=== PATIENT | female | born 1945 | race Hispanic/Latino ===

== ENCOUNTER 2017-08-19 08:54 | Observation (INO) | payer MEDICARE ==
[2017-08-16 12:09] VITALS: BP 126/52
[2017-08-16 12:30] LABS: BASOPHILS % (AUTO) 0.4 % (0.0-5.0); EOSINOPHILS % (AUTO) 5.7 % (0.0-8.0); HEMATOCRIT 35.7 % (36-48); LYMPHOCYTES % (AUTO) 30.4 % (21.0-51.0); MEAN CORPUSCULAR HEMOGLOBIN 31.6 pg (27.0-33.0); MEAN CORPUSCULAR HGB CONC 33.4 g/dL (32.0-36.0); MEAN CORPUSCULAR VOLUME 94.5 fL (79-99); MONOCYTES % (AUTO) 8.6 % (3.0-13.0); NEUTROPHILS % (AUTO) 54.9 % (40.0-77.0); PLATELET COUNT (AUTO) 137 K/uL (130-400); RED BLOOD CELL COUNT(AUTO) 3.77 MIL/uL (4.00-5.50); RED CELL DISTRIBUTION WIDTH 12.6 % (11.0-15.5); WHITE BLOOD COUNT (AUTO) 8.7 K/uL (4.8-10.8)
[2017-08-16 12:39] LABS: CREATININE 1.4 mg/dL (0.5-1.5); POTASSIUM 4.2 mmol/L (3.5-5.1)
[2017-08-16 13:17] LABS: INR 0.99 (0.85-1.15); PARTIAL THROMBOPLASTIN TIME 25.3 SEC (26.3-35.5); PROTHROMBIN TIME 10.4 SEC (9.6-11.6)
[2017-08-19] VITALS (10 sets, daily range): BP systolic 97–132; BP diastolic 49–78
[~2017-08-19] VITALS: Ht 154.9 cm; Wt 58.7 kg
[~2017-08-19 08:54] MED LIST: AMLO10TA2 PO; ASPI81TA40 PO; CEPH500C2 PO; CLOP75TA14 PO; DEXL60CA3 PO; FURO40TA5 PO; ISOS30TA6 PO; METO-391 PO; NEPHRO VITE PO; SIMV20TA6 PO
[2017-08-19 09:28] LABS: APPEARANCE,URINE Clear (CLEAR); BILIRUBIN,URINE Negative (NEGATIVE); COLOR,URINE Yellow (YELLOW); GLUCOSE, URINE (UA) Negative (NEGATIVE); KETONES,URINE Negative (NEGATIVE); LEUKOCYTE ESTERASE ,URINE Negative (NEGATIVE); NITRATE,URINE Negative (NEGATIVE); OCCULT BLOOD,URINE Negative (NEGATIVE); PH,URINE 5.5 (5.0-8.0); PROTEIN,URINE Negative (NEGATIVE); UROBILINOGEN,URINE 0.2 mg/dL (0.2-1.0)
[2017-08-19] MEDS: SODIUM CHLORIDE 0.9% 500ML 500 ML IV SCH ×2 (10:46→22:09)
[2017-08-19] MEDS ORDERED: HEPARIN SODIUM 1000UNIT/ML 10ML VIAL ONE (13:53)
[2017-08-19] MEDS ORDERED: IOPAMIDOL-370 100 ML VIAL IV ONE ×2 (13:53→14:38)
[2017-08-19] MEDS ORDERED: LIDOCAINE HCL 2% 20ML ONE (13:53)
[2017-08-19] MEDS ORDERED: NITROGLYCERIN 5 MG/ML 10 ML VIAL IV ONE (13:53)
[2017-08-19] MEDS ORDERED: ISOVUE-370 50ML VIAL IV ONE (13:53)
[2017-08-19] MEDS ORDERED: SODIUM BICARB 50MEQ 50ML VIAL ONE (13:54)
[2017-08-19] MEDS ORDERED: MIDAZOLAM HCL 1 MG/ML 2ML VIAL ONE ×2 (14:20→14:46)
[2017-08-19] MEDS ORDERED: ATROPINE SULFATE 0.1 MG/ML 10 ML SYG IVP ONE (15:13)
[2017-08-19] MEDS ORDERED: SODIUM CHLORIDE 0.9% 1000ML 1,000 ML IV SCH (15:45)
[2017-08-19] MEDS ORDERED: ONDANSETRON HCL 4 MG/2 ML VIAL IVP PRN (15:45)
[2017-08-19] MEDS ORDERED: TEMAZEPAM 30 MG CAP PO PRN (15:45)
[2017-08-19] MEDS ORDERED: NITROGLYCERIN 50 MG/D5% WATER 1 BOT IV PRN (15:45)
[2017-08-19] MEDS: INSULIN HUMULIN R 100 UNIT/ML 3ML SQ SCH ×2 (16:30→21:00)
[2017-08-19] MEDS: KETOROLAC TROMETHAMINE 15MG/ML IV PRN (18:13)
[2017-08-19] MEDS ORDERED: ATORVASTATIN CALCIUM 10 MG TABLET PO SCH (21:00)
[2017-08-19] MEDS: CEPHALEXIN 500 MG CAPSULE PO SCH (23:33)
[2017-08-20 04:00] VITALS: BP 151/68
[2017-08-20 04:45] LABS: HEMATOCRIT 31.1 % (36-48); MEAN CORPUSCULAR HEMOGLOBIN 32.6 pg (27.0-33.0); MEAN CORPUSCULAR HGB CONC 34.6 g/dL (32.0-36.0); MEAN CORPUSCULAR VOLUME 94.1 fL (79-99); PLATELET COUNT (AUTO) 145 K/uL (130-400); RED CELL DISTRIBUTION WIDTH 12.5 % (11.0-15.5); WHITE BLOOD COUNT (AUTO) 6.1 K/uL (4.8-10.8)
[2017-08-20 05:01] LABS: CREATININE 1.5 mg/dL (0.5-1.5); POTASSIUM 4.4 mmol/L (3.5-5.1)
[2017-08-20] MEDS: INSULIN HUMULIN R 100 UNIT/ML 3ML SQ SCH (06:20)
[2017-08-20 07:00] VITALS: BP 133/72
[2017-08-20] MEDS: CEPHALEXIN 500 MG CAPSULE PO SCH (07:57)
[2017-08-20] MEDS: KETOROLAC TROMETHAMINE 15MG/ML IV PRN (07:58)
[2017-08-20] MEDS ORDERED: ASPIRIN 81 MG EC TAB PO SCH (09:00)
[2017-08-20] MEDS ORDERED: PANTOPRAZOLE SODIUM 40 MG TABLET.DR PO SCH (09:00)
[2017-08-20] MEDS ORDERED: AMLODIPINE BESYLATE 5 MG TAB PO SCH (09:00)
[2017-08-20] MEDS ORDERED: FOLIC ACID/VITAMIN B COMP W-C 1 MG CAPSULE PO SCH (09:00)
[2017-08-20] MEDS ORDERED: Metoprolol Succinate 50 MG PO SCH (09:00)
[2017-08-20] MEDS ORDERED: FUROSEMIDE 40 MG TABLET PO SCH (09:00)
[2017-08-20] MEDS ORDERED: CLOPIDOGREL BISULFATE 75 MG TAB PO SCH (09:00)
[2017-08-20] MEDS ORDERED: ISOSORBIDE MONO 30MG TAB SR PO SCH (09:00)
== END 2017-08-20 10:35 | disposition home or self-care (01) ==
LOC: DAH 08:54 → DAHIP 08:55 → 2DH 16:18
PROVIDERS: ADMIT Internal Medicine Cardiovascular Disease; ATTEND Internal Medicine Cardiovascular Disease
DX: I25.119 Atherosclerotic heart disease of native coronary artery with unspecified angina pectoris (principal); I10 Essential (primary) hypertension; E11.9 Type 2 diabetes mellitus without complications; E78.5 Hyperlipidemia, unspecified; Z95.5 Presence of coronary angioplasty implant and graft
CPT/HCPCS: 36415 ×2; 71045; 80048 ×2; 80061; 81003; 82948 ×4; 85025; 85027; 85347; 85610; 85730; 93005 ×2; 93459; 96374; 96375; 96376; A4606; C1725; C1760; C1769 ×3; C1874; C1887 ×4; C1894 ×2; C9600; G0378 ×26; J1644 ×2; J1885 ×2; J2250 ×2; J2405 ×2; J3490 ×3; J7040 ×3; Q9967 ×3; 99152; 99153; J0461

== ENCOUNTER 2017-08-22 10:52 | Emergency (ER) | payer MEDICARE | END 2017-08-22 11:24 | disposition home or self-care (01) | LOC: EDH 10:52 | DX: L76.32 Postprocedural hematoma of skin and subcutaneous tissue following other procedure (principal); E11.9 Type 2 diabetes mellitus without complications; I10 Essential (primary) hypertension; E78.5 Hyperlipidemia, unspecified; I25.2 Old myocardial infarction; Z88.1 Allergy status to other antibiotic agents; Z88.8 Allergy status to other drugs, medicaments and biological substances; Z98.62 Peripheral vascular angioplasty status | CPT/HCPCS: 99281 ==

== ENCOUNTER → 2017-08-23 | Outpatient (CLI) | payer MEDICARE | END | disposition home or self-care (01) | LOC: RAH 15:13 | PROVIDERS: ATTEND Internal Medicine Cardiovascular Disease | DX: M79.81 Nontraumatic hematoma of soft tissue (principal) | CPT/HCPCS: 76882 ==

== ENCOUNTER 2017-12-29 09:04 | Emergency (ER) | payer MEDICARE ==
[2017-12-29] MEDS ORDERED: ACETAMINOPHEN 325 MG TAB ONE (09:24)
[2017-12-29 09:27] LABS: BASOPHILS % (AUTO) 0.3 % (0.0-5.0); EOSINOPHILS % (AUTO) 4.3 % (0.0-8.0); HEMATOCRIT 37.2 % (36-48); MEAN CORPUSCULAR HEMOGLOBIN 31.2 pg (27.0-33.0); MEAN CORPUSCULAR HGB CONC 34.6 g/dL (32.0-36.0); MEAN CORPUSCULAR VOLUME 90.3 fL (79-99); MONOCYTES % (AUTO) 7.8 % (3.0-13.0); NEUTROPHILS % (AUTO) 65.6 % (40.0-77.0); PLATELET COUNT (AUTO) 143 K/uL (130-400); RED BLOOD CELL COUNT(AUTO) 4.12 MIL/uL (4.00-5.50); RED CELL DISTRIBUTION WIDTH 14.2 % (11.0-15.5); WHITE BLOOD COUNT (AUTO) 8.3 K/uL (4.8-10.8)
[2017-12-29] MEDS ORDERED: IPRATROPIUM/ALBUTEROL SULFATE 3 ML SOLUTION IH ONE (09:30)
[2017-12-29 09:34] LABS: CREATININE 1.1 mg/dL (0.5-1.5); POTASSIUM 4.4 mmol/L (3.5-5.1)
[2017-12-29 09:41] LABS: ALBUMIN 3.8 g/dL (3.5-5.0); BILIRUBIN,TOTAL 0.8 mg/dL (0.2-1.0); TOTAL PROTEIN, SERUM 7.6 g/dL (6.0-8.3)
[2017-12-29 10:00] LABS: APPEARANCE,URINE Clear (CLEAR); BILIRUBIN,URINE Negative (NEGATIVE); COLOR,URINE Yellow (YELLOW); GLUCOSE, URINE (UA) Negative (NEGATIVE); KETONES,URINE Negative (NEGATIVE); LEUKOCYTE ESTERASE ,URINE Moderate (NEGATIVE); NITRATE,URINE Negative (NEGATIVE); OCCULT BLOOD,URINE Negative (NEGATIVE); PROTEIN,URINE Negative (NEGATIVE)
[2017-12-29 10:09] LABS: INR 0.96 (0.85-1.15); PROTHROMBIN TIME 10.1 SEC (9.6-11.6)
[2017-12-29 10:11] LABS: RAPID GROUP A STREP NEGATIVE (NEGATIVE)
[2017-12-29 10:32] LABS: BACTERIA,URINE Few /HPF (None Seen); RBC,URINE None Seen /HPF (0-1); SQUAMOUS EPITHELIAL CELL,UR Few /HPF (0-2); WBC,URINE 0-1 /HPF (0-1)
== END 2017-12-29 11:59 | disposition home or self-care (01) ==
LOC: EDH 09:04
DX: J20.9 Acute bronchitis, unspecified (principal); E11.9 Type 2 diabetes mellitus without complications; E78.5 Hyperlipidemia, unspecified; I10 Essential (primary) hypertension; I25.2 Old myocardial infarction; Z88.1 Allergy status to other antibiotic agents; Z79.899 Other long term (current) drug therapy
CPT/HCPCS: 36415; 71045; 80053; 81001; 82550; 84484; 85025; 85610; 85730; 87040; 87804; 87880; 93005; 94640

== ENCOUNTER → 2018-01-08 | Outpatient (CLI) | payer MEDICARE | END | disposition home or self-care (01) | LOC: SHCH 14:50 | PROVIDERS: ATTEND Internal Medicine Cardiovascular Disease | DX: I25.119 Atherosclerotic heart disease of native coronary artery with unspecified angina pectoris (principal); I10 Essential (primary) hypertension; E11.9 Type 2 diabetes mellitus without complications; E78.5 Hyperlipidemia, unspecified; Z95.1 Presence of aortocoronary bypass graft; I65.23 Occlusion and stenosis of bilateral carotid arteries | CPT/HCPCS: 93880 ==

== ENCOUNTER 2018-04-13 22:26 | Inpatient (IN) | payer MEDICARE ==
[~2018-04-13] VITALS: Ht 160 cm; Wt 63.3 kg
[~2018-04-13 22:26] MED LIST changes: -AMLO10TA2 PO; +AMLO10TA6 PO
[2018-04-13] MEDS ORDERED: ONDANSETRON HCL 4 MG/2 ML VIAL ONE (23:00)
[2018-04-13 23:27] LABS: BASOPHILS % (AUTO) 0.9 % (0.0-5.0); LYMPHOCYTES % (AUTO) 14.4 % (21.0-51.0); MEAN CORPUSCULAR HEMOGLOBIN 32.1 pg (27.0-33.0); MEAN CORPUSCULAR HGB CONC 34.9 g/dL (32.0-36.0); MONOCYTES % (AUTO) 5.5 % (3.0-13.0); NEUTROPHILS % (AUTO) 76.2 % (40.0-77.0); PLATELET COUNT (AUTO) 174 K/uL (130-400); RED BLOOD CELL COUNT(AUTO) 4.24 MIL/uL (4.00-5.50); RED CELL DISTRIBUTION WIDTH 13.6 % (11.0-15.5)
[2018-04-13 23:40] LABS: CREATININE 1.3 mg/dL (0.5-1.5); POTASSIUM 3.4 mmol/L (3.5-5.1)
[2018-04-13 23:42] LABS: INR 0.97 (0.85-1.15); PARTIAL THROMBOPLASTIN TIME 23.7 SEC (26.3-35.5); PROTHROMBIN TIME 10.2 SEC (9.6-11.6)
[2018-04-13 23:53] LABS: ALBUMIN 3.9 g/dL (3.5-5.0); BILIRUBIN,TOTAL 0.6 mg/dL (0.2-1.0); TOTAL PROTEIN, SERUM 7.6 g/dL (6.0-8.3)
[2018-04-14 02:20] LABS: APPEARANCE,URINE Cloudy (CLEAR); BILIRUBIN,URINE Negative (NEGATIVE); COLOR,URINE Yellow (YELLOW); GLUCOSE, URINE (UA) Negative (NEGATIVE); KETONES,URINE Negative (NEGATIVE); LEUKOCYTE ESTERASE ,URINE Large (NEGATIVE); NITRATE,URINE Negative (NEGATIVE); OCCULT BLOOD,URINE Negative (NEGATIVE); PH,URINE 5.5 (5.0-8.0); PROTEIN,URINE Trace (NEGATIVE)
[2018-04-14 02:27] LABS: BACTERIA,URINE None Seen /HPF (None Seen); RBC,URINE None Seen /HPF (0-1); SQUAMOUS EPITHELIAL CELL,UR Rare /HPF (0-2)
[2018-04-14] MEDS ORDERED: NITROGLYCERIN 1GM/1 INCH PACKET TD ONE (04:18)
[2018-04-14 05:35] LABS: BASOPHILS % (AUTO) 0.1 % (0.0-5.0); EOSINOPHILS % (AUTO) 2.2 % (0.0-8.0); HEMATOCRIT 32.4 % (36-48); LYMPHOCYTES % (AUTO) 20.6 % (21.0-51.0); MEAN CORPUSCULAR HEMOGLOBIN 31.9 pg (27.0-33.0); MONOCYTES % (AUTO) 6.7 % (3.0-13.0); NEUTROPHILS % (AUTO) 70.4 % (40.0-77.0); PLATELET COUNT (AUTO) 137 K/uL (130-400); RED BLOOD CELL COUNT(AUTO) 3.56 MIL/uL (4.00-5.50); RED CELL DISTRIBUTION WIDTH 13.5 % (11.0-15.5); WHITE BLOOD COUNT (AUTO) 7.6 K/uL (4.8-10.8)
[2018-04-14 05:39] LABS: CREATININE 1.2 mg/dL (0.5-1.5); POTASSIUM 3.2 mmol/L (3.5-5.1)
[2018-04-14 05:44] LABS: ALBUMIN 3.2 g/dL (3.5-5.0); BILIRUBIN,TOTAL 0.4 mg/dL (0.2-1.0); TOTAL PROTEIN, SERUM 6.5 g/dL (6.0-8.3)
[2018-04-14 06:10] VITALS: BP 139/66
[2018-04-14 08:00] VITALS: BP 131/74
[2018-04-14] MEDS: FUROSEMIDE 40 MG TABLET PO SCH (09:42)
[2018-04-14] MEDS: ASPIRIN 81MG TAB.CHEW PO SCH (09:42)
[2018-04-14] MEDS: AMLODIPINE BESYLATE 5 MG TAB PO SCH (09:42)
[2018-04-14] MEDS: CLOPIDOGREL BISULFATE 75 MG TAB PO SCH (09:42)
[2018-04-14] MEDS: PANTOPRAZOLE SODIUM 40 MG TABLET.DR PO SCH (09:42)
[2018-04-14] MEDS: ISOSORBIDE MONO 30MG TAB SR PO SCH (09:42)
[2018-04-14 12:00] VITALS: BP 120/57
[2018-04-14] MEDS ORDERED: POTASSIUM CHLORIDE 10% ELIXIR 20 MEQ/15 ML UDCUP PO PRN (15:30)
[2018-04-14] MEDS ORDERED: POTASSIUM CHLORIDE 20MEQ/100ML 100 ML IV PRN (15:30)
[2018-04-14] MEDS ORDERED: LIDOCAINE HCL-MPF 1% 2ML VIAL IVP PRN (15:30)
[2018-04-14 16:00] VITALS: BP 103/71
[2018-04-14] MEDS: POTASSIUM CHLORIDE 20 MEQ ERTAB PO PRN ×3 (17:15→21:00)
[2018-04-14 20:00] VITALS: BP 153/73
[2018-04-14] MEDS ORDERED: SIMVASTATIN 20 MG TABLET PO SCH (21:00)
[2018-04-14] MEDS ORDERED: METOPROLOL TARTRATE 25 MG TAB PO SCH (21:00)
[2018-04-14 23:10] VITALS: BP 109/59
[2018-04-15] MEDS ORDERED: ACETAMINOPHEN 325 MG TAB PO PRN (03:30)
[2018-04-15] MEDS ORDERED: LACTULOSE 20 GM/30 ML UDCUP PO PRN (03:30)
[2018-04-15 03:42] VITALS: BP 108/57
[2018-04-15 05:07] LABS: BASOPHILS % (AUTO) 0.3 % (0.0-5.0); EOSINOPHILS % (AUTO) 8.1 % (0.0-8.0); HEMATOCRIT 33.4 % (36-48); LYMPHOCYTES % (AUTO) 42.6 % (21.0-51.0); MEAN CORPUSCULAR HEMOGLOBIN 31.4 pg (27.0-33.0); MEAN CORPUSCULAR HGB CONC 34.2 g/dL (32.0-36.0); MEAN CORPUSCULAR VOLUME 91.9 fL (79-99); MONOCYTES % (AUTO) 9.1 % (3.0-13.0); NEUTROPHILS % (AUTO) 39.9 % (40.0-77.0); PLATELET COUNT (AUTO) 112 K/uL (130-400); RED BLOOD CELL COUNT(AUTO) 3.64 MIL/uL (4.00-5.50); RED CELL DISTRIBUTION WIDTH 13.9 % (11.0-15.5); WHITE BLOOD COUNT (AUTO) 5.5 K/uL (4.8-10.8)
[2018-04-15 05:27] LABS: ALBUMIN 3.2 g/dL (3.5-5.0); BILIRUBIN,TOTAL 0.5 mg/dL (0.2-1.0); CREATININE 1.2 mg/dL (0.5-1.5); POTASSIUM 3.8 mmol/L (3.5-5.1); TOTAL PROTEIN, SERUM 6.3 g/dL (6.0-8.3)
[2018-04-15 08:15] VITALS: BP 113/57
[2018-04-15] MEDS ORDERED: METOPROLOL TARTRATE 50 MG TAB PO SCH (09:00)
[2018-04-15] MEDS ORDERED: METO50TA18 PO (09:15)
[2018-04-15] MEDS: CLOPIDOGREL BISULFATE 75 MG TAB PO SCH (09:32)
[2018-04-15] MEDS: ISOSORBIDE MONO 30MG TAB SR PO SCH (09:32)
[2018-04-15] MEDS: PANTOPRAZOLE SODIUM 40 MG TABLET.DR PO SCH (09:32)
[2018-04-15] MEDS: ASPIRIN 81MG TAB.CHEW PO SCH (09:32)
[2018-04-15] MEDS: FUROSEMIDE 40 MG TABLET PO SCH (09:32)
[2018-04-15] MEDS: AMLODIPINE BESYLATE 5 MG TAB PO SCH (09:32)
== END 2018-04-15 13:05 | disposition home or self-care (01) | DRG 206 ==
LOC: EDH 22:26 → EDHIP 04-14 02:50 → 3DH 04-14 05:58
PROVIDERS: ADMIT Hospitalist; ATTEND Hospitalist
DX: M94.0 Chondrocostal junction syndrome [Tietze] (principal); K21.9 Gastro-esophageal reflux disease without esophagitis; R00.2 Palpitations; E11.51 Type 2 diabetes mellitus with diabetic peripheral angiopathy without gangrene; F41.9 Anxiety disorder, unspecified; I10 Essential (primary) hypertension; E78.5 Hyperlipidemia, unspecified; I25.119 Atherosclerotic heart disease of native coronary artery with unspecified angina pectoris; Z95.1 Presence of aortocoronary bypass graft; Z79.84 Long term (current) use of oral hypoglycemic drugs; Z82.49 Family history of ischemic heart disease and other diseases of the circulatory system; Z83.3 Family history of diabetes mellitus; Z82.0 Family history of epilepsy and other diseases of the nervous system; Z82.5 Family history of asthma and other chronic lower respiratory diseases; Z82.3 Family history of stroke; Z83.49 Family history of other endocrine, nutritional and metabolic diseases; Z90.710 Acquired absence of both cervix and uterus; Z90.49 Acquired absence of other specified parts of digestive tract; Z88.1 Allergy status to other antibiotic agents; Z88.2 Allergy status to sulfonamides; Z88.7 Allergy status to serum and vaccine; Z88.8 Allergy status to other drugs, medicaments and biological substances; Z79.899 Other long term (current) drug therapy; Z28.21 Immunization not carried out because of patient refusal; Z79.82 Long term (current) use of aspirin; Z90.722 Acquired absence of ovaries, bilateral
CPT/HCPCS: 36415; 71045; 80053; 81001; 82550; 82948; 83605; 83690; 83874; 84484; 85025; 85610; 85730; 93005; J2405

== ENCOUNTER 2019-01-28 19:43 | Inpatient (IN) | payer MEDICARE | END 2019-01-31 15:30 | disposition home or self-care (01) | LOC: EDH 19:43 → EDHIP 22:08 → 4CH 22:44 ==

== ENCOUNTER → 2019-03-12 | Outpatient (CLI) | payer MEDICARE ==
--- NOTE | 2019-03-06 13:51 | NUR ---
PT WAS A NO SHOW FOR THIS DATE OF SERVICE
[~2019-03-12] VITALS: Ht 152.4 cm; Wt 60.8 kg
[~2019-03-12] MED LIST changes: -AMLO10TA6 PO; +AMLO5TAB9 PO; -CEPH500C2 PO; +DOCU-282 PO; +MECL-111 PO; -METO-391 PO; +METO25 PO; +NITR0.4T50 SL; +REGADENOSON 0.4 MG/5 ML PF SYG IVP SCH; -SIMV20TA6 PO; +SUCR1TAB2 PO
== END | disposition home or self-care (01) ==
LOC: SHCH 09:06
PROVIDERS: ATTEND Internal Medicine Cardiovascular Disease
DX: I25.10 Atherosclerotic heart disease of native coronary artery without angina pectoris (principal)
CPT/HCPCS: 78452; 93017; 96374; A9500 ×2; J2785

== ENCOUNTER 2019-05-22 07:49 | Inpatient (IN) | payer MEDICARE ==
[~2019-05-22] VITALS: Ht 154.9 cm; Wt 58.5 kg
[~2019-05-22 07:49] MED LIST changes: -REGADENOSON 0.4 MG/5 ML PF SYG IVP SCH
[2019-05-22 08:48] LABS: BASOPHILS % (AUTO) 0.9 % (0.0-5.0); EOSINOPHILS % (AUTO) 1.5 % (0.0-8.0); HEMATOCRIT 34.5 % (36-48); LYMPHOCYTES % (AUTO) 21.9 % (21.0-51.0); MEAN CORPUSCULAR HEMOGLOBIN 31.4 pg (27.0-33.0); MEAN CORPUSCULAR HGB CONC 34.6 g/dL (32.0-36.0); MEAN CORPUSCULAR VOLUME 90.9 fL (79-99); MONOCYTES % (AUTO) 9.4 % (3.0-13.0); NEUTROPHILS % (AUTO) 66.3 % (40.0-77.0); PLATELET COUNT (AUTO) 133 K/uL (130-400); RED CELL DISTRIBUTION WIDTH 14.2 % (11.0-15.5); WHITE BLOOD COUNT (AUTO) 8.8 K/uL (4.8-10.8)
[2019-05-22 08:53] LABS: CARBON DIOXIDE 24 mmol/L (21-32); CHLORIDE 105 mmol/L (101-111); CREATININE 1.1 mg/dL (0.5-1.5); GLOMERULAR FILTR. RATE CALC 51 mL/min (>60); GLUCOSE,RANDOM 105 mg/dL (70-105); POTASSIUM 3.7 mmol/L (3.5-5.1); SODIUM SERUM 139 mmol/L (136-145); UREA NITROGEN, BLOOD 12 mg/dL (7-18)
[2019-05-22] MEDS ORDERED: ZOSYN 3.375GM+NS 50ML 50 ML IV ONE (08:53)
[2019-05-22 08:59] LABS: ALANINE AMINOTRANSFERASE 21 U/L (12-78); ALBUMIN 3.4 g/dL (3.5-5.0); ASPARTATE AMINOTRANSFERASE 23 U/L (10-37); INR 1.01 (0.85-1.15); PROTHROMBIN TIME 10.6 SEC (9.6-11.6)
[2019-05-22 09:17] LABS: BILIRUBIN,TOTAL 1.4 mg/dL (0.2-1.0); CREATINE KINASE, TOTAL 47 U/L (21-232); MYOGLOBIN 82 ng/mL (10-92); TOTAL PROTEIN, SERUM 7.5 g/dL (6.0-8.3); TROPONIN I < 0.04 ng/mL (0.00-0.06)
[2019-05-22 09:21] LABS: BILIRUBIN,URINE Negative (NEGATIVE); COLOR,URINE Dark Yellow (YELLOW); GLUCOSE, URINE (UA) Negative (NEGATIVE); KETONES,URINE Negative (NEGATIVE); LEUKOCYTE ESTERASE ,URINE Moderate (NEGATIVE); NITRATE,URINE Negative (NEGATIVE); OCCULT BLOOD,URINE Negative (NEGATIVE); PROTEIN,URINE Negative (NEGATIVE)
[2019-05-22 09:22] LABS: APPEARANCE,URINE SLIGHTLY CLOUDY (CLEAR)
[2019-05-22] MEDS ORDERED: VANCOMYCIN 1GM+NS 250ML 250 ML IV ONE (09:22)
[2019-05-22 09:38] LABS: BACTERIA,URINE Few /HPF (None Seen); RBC,URINE 0-1 /HPF (0-1)
[2019-05-22] MEDS ORDERED: RENAL DOSE IV SCH ×2 (10:45→11:30)
[2019-05-22] MEDS ORDERED: PHARMACY COMMUNICATION MISC SCH (10:45)
[2019-05-22] MEDS ORDERED: ONDANSETRON HCL 4 MG/2 ML VIAL IVP PRN (10:45)
[2019-05-22] MEDS ORDERED: ACETAMINOPHEN 325 MG TAB PO PRN (10:45)
[2019-05-22] MEDS ORDERED: VANCOMYCIN PROTOCOL PER PHARMACY IV SCH (12:30)
[2019-05-22 13:48] VITALS: BP 150/74
[2019-05-22] MEDS: VANCOMYCIN 500MG+NS 100ML 100 ML IV SCH (14:42)
[2019-05-22] MEDS: MORPHINE SULFATE 2 MG/ML 1ML SYG IV PRN ×2 (14:45→21:12)
[2019-05-22 16:00] VITALS: BP 132/63
[2019-05-22] MEDS: ZOSYN 3.375GM+NS 50ML 50 ML IV SCH (18:21)
[2019-05-22 20:12] VITALS: BP 155/75
[2019-05-22] MEDS: FAMOTIDINE 20MG TAB 20 MG TAB PO SCH (20:17)
[2019-05-22] MEDS ORDERED: FOLI1TAB85 PO (23:53)
[2019-05-22] MEDS ORDERED: METO-408 PO (23:53)
[2019-05-23 00:09] VITALS: BP 161/79
[2019-05-23] MEDS: ZOSYN 3.375GM+NS 50ML 50 ML IV SCH ×3 (00:24→17:27)
[2019-05-23] MEDS: VANCOMYCIN 500MG+NS 100ML 100 ML IV SCH ×2 (00:24→13:29)
[2019-05-23] MEDS: MORPHINE SULFATE 2 MG/ML 1ML SYG IV PRN ×2 (02:09→13:29)
[2019-05-23 04:12] VITALS: BP 143/75
[2019-05-23 06:20] LABS: BASOPHILS % (AUTO) 0.5 % (0.0-5.0); EOSINOPHILS % (AUTO) 2.3 % (0.0-8.0); HEMATOCRIT 32.9 % (36-48); LYMPHOCYTES % (AUTO) 21.9 % (21.0-51.0); MEAN CORPUSCULAR HEMOGLOBIN 31.6 pg (27.0-33.0); MEAN CORPUSCULAR HGB CONC 34.4 g/dL (32.0-36.0); MEAN CORPUSCULAR VOLUME 91.8 fL (79-99); MONOCYTES % (AUTO) 10.2 % (3.0-13.0); NEUTROPHILS % (AUTO) 65.1 % (40.0-77.0); NUCLEATED RED BLOOD CELLS 0.1 % (0.0-0.19); PLATELET COUNT (AUTO) 137 K/uL (130-400); RED BLOOD CELL COUNT(AUTO) 3.59 MIL/uL (4.00-5.50); RED CELL DISTRIBUTION WIDTH 13.8 % (11.0-15.5); WHITE BLOOD COUNT (AUTO) 8.6 K/uL (4.8-10.8)
[2019-05-23 06:41] LABS: CREATININE 1.2 mg/dL (0.5-1.5); POTASSIUM 3.7 mmol/L (3.5-5.1)
[2019-05-23 08:00] VITALS: BP 152/69
[2019-05-23] MEDS: ENOXAPARIN SODIUM 30 MG/0.3 ML SQ SCH (09:07)
[2019-05-23] MEDS: FAMOTIDINE 20MG TAB 20 MG TAB PO SCH ×2 (09:07→21:41)
[2019-05-23 11:00] VITALS: BP_SYST 127; BP_SYST 154; BP_DIAS 64; BP_DIAS 86
[2019-05-23] MEDS ORDERED: LORAZEPAM 2 MG/ML 1 ML VIAL IVP PRN (16:45)
[2019-05-23] MEDS: KETOROLAC TROMETHAMINE 15MG/ML IV PRN (17:27)
--- NOTE | 2019-05-23 19:02 | NUR ---
D/C PLAN CM spoke to pt and wood Benitez regarding d/c planning. Pt lives with son. Daughter Eli is patient's provider. Daughter assists in care as needed. Pt and daughter agreeable to short term snf/rehab as possible d/c option. Undecided as to which facility. Daughter will be touring facilities and will make decision tomorrow. CM to f/u. Addendum: 05/23/19 at 1904 by SOM MARTINEZ CM Amended: Links added.
[2019-05-23 19:25] VITALS: BP 125/73
[2019-05-23 23:15] VITALS: BP 147/73
[2019-05-24] MEDS: VANCOMYCIN 500MG+NS 100ML 100 ML IV SCH ×2 (00:27→16:06)
[2019-05-24] MEDS: ZOSYN 3.375GM+NS 50ML 50 ML IV SCH ×3 (00:27→16:14)
[2019-05-24 05:25] VITALS: BP 155/83
[2019-05-24 05:51] LABS: BASOPHILS % (AUTO) 0.3 % (0.0-5.0); EOSINOPHILS % (AUTO) 2.9 % (0.0-8.0); HEMATOCRIT 28.9 % (36-48); LYMPHOCYTES % (AUTO) 30.2 % (21.0-51.0); MEAN CORPUSCULAR HEMOGLOBIN 31.5 pg (27.0-33.0); MEAN CORPUSCULAR HGB CONC 34.9 g/dL (32.0-36.0); MEAN CORPUSCULAR VOLUME 90.2 fL (79-99); MONOCYTES % (AUTO) 8.8 % (3.0-13.0); NEUTROPHILS % (AUTO) 57.8 % (40.0-77.0); PLATELET COUNT (AUTO) 141 K/uL (130-400); RED BLOOD CELL COUNT(AUTO) 3.21 MIL/uL (4.00-5.50); RED CELL DISTRIBUTION WIDTH 13.8 % (11.0-15.5); WHITE BLOOD COUNT (AUTO) 7.3 K/uL (4.8-10.8)
[2019-05-24 05:59] LABS: CREATININE 1.2 mg/dL (0.5-1.5); POTASSIUM 3.4 mmol/L (3.5-5.1)
[2019-05-24] MEDS ORDERED: LIDOCAINE HCL-MPF 1% 2ML VIAL IV PRN (06:15)
[2019-05-24] MEDS ORDERED: POTASSIUM CHLORIDE 10% ELIXIR 20 MEQ/15 ML UDCUP PO PRN (06:15)
[2019-05-24] MEDS ORDERED: POTASSIUM CHLORIDE 10MEQ/100ML 100 ML IV PRN (06:15)
[2019-05-24] MEDS ORDERED: POTASSIUM CHLORIDE 20 MEQ ERTAB PO PRN (06:15)
[2019-05-24] MEDS ORDERED: POTASSIUM CHLORIDE 10 MEQ/TAB.SA PO ONE (06:34)
[2019-05-24 08:00] VITALS: BP 161/94
[2019-05-24] MEDS: ENOXAPARIN SODIUM 30 MG/0.3 ML SQ SCH (09:06)
[2019-05-24] MEDS: FAMOTIDINE 20MG TAB 20 MG TAB PO SCH (09:06)
[2019-05-24] MEDS: KETOROLAC TROMETHAMINE 15MG/ML IV PRN ×2 (10:31→17:41)
[2019-05-24 11:00] VITALS: BP 138/91
[2019-05-24] MEDS ORDERED: LACTULOSE 20 GM/30 ML UDCUP PO PRN (12:45)
[2019-05-24 16:00] VITALS: BP 126/73
[2019-05-24] MEDS ORDERED: CLIN300C9 PO (18:13)
[2019-05-24 19:45] VITALS: BP 113/62
== END 2019-05-24 20:05 | disposition home or self-care (01) | DRG 603 ==
LOC: EDH 07:49 → EDHIP 10:42 → OBSVTOIN 10:42 → 4DH 12:32
PROVIDERS: ADMIT Hospitalist; ATTEND Hospitalist
DX: L03.114 Cellulitis of left upper limb (principal); E11.9 Type 2 diabetes mellitus without complications; E78.5 Hyperlipidemia, unspecified; I10 Essential (primary) hypertension; I25.2 Old myocardial infarction; Z82.0 Family history of epilepsy and other diseases of the nervous system; Z82.3 Family history of stroke; Z82.49 Family history of ischemic heart disease and other diseases of the circulatory system; Z83.3 Family history of diabetes mellitus; Z95.1 Presence of aortocoronary bypass graft; Z82.5 Family history of asthma and other chronic lower respiratory diseases; Z88.1 Allergy status to other antibiotic agents; Z88.8 Allergy status to other drugs, medicaments and biological substances
CPT/HCPCS: 36415; 71045; 73070; 80048; 80053; 80202; 81001; 82550; 82948; 83605; 83874; 84145; 84484; 85025; 85610; 85651; 85730; 86140; 87040; 87077; 87088; 87186; 93005; 97039; G0378; J1650; J1885; J2060; J2543; J3370

== ENCOUNTER 2019-05-29 11:05 | Inpatient (IN) | payer MEDICARE ==
[~2019-05-29] VITALS: Ht 157.5 cm; Wt 59.3 kg
[~2019-05-29 11:05] MED LIST changes: +CLIN300C9 PO; +FOLI1TAB85 PO; -MECL-111 PO; +METO-408 PO; -METO25 PO; -NEPHRO VITE PO; -NITR0.4T50 SL
[2019-05-29 11:33] LABS: BASOPHILS % (AUTO) 0.3 % (0.0-5.0); EOSINOPHILS % (AUTO) 3.4 % (0.0-8.0); HEMATOCRIT 30.1 % (36-48); LYMPHOCYTES % (AUTO) 15.4 % (21.0-51.0); MEAN CORPUSCULAR HEMOGLOBIN 30.2 pg (27.0-33.0); MEAN CORPUSCULAR HGB CONC 33.4 g/dL (32.0-36.0); MEAN CORPUSCULAR VOLUME 90.4 fL (79-99); MONOCYTES % (AUTO) 5.2 % (3.0-13.0); NEUTROPHILS % (AUTO) 75.7 % (40.0-77.0); PLATELET COUNT (AUTO) 275 K/uL (130-400); RED BLOOD CELL COUNT(AUTO) 3.33 MIL/uL (4.00-5.50); RED CELL DISTRIBUTION WIDTH 13.4 % (11.0-15.5); WHITE BLOOD COUNT (AUTO) 12.8 K/uL (4.8-10.8)
[2019-05-29 11:45] LABS: CREATININE 1.3 mg/dL (0.5-1.5); POTASSIUM 3.5 mmol/L (3.5-5.1)
[2019-05-29 11:49] LABS: INR 1.03 (0.85-1.15); PARTIAL THROMBOPLASTIN TIME 30.6 SEC (26.3-35.5); PROTHROMBIN TIME 10.8 SEC (9.6-11.6)
[2019-05-29 11:53] LABS: ALBUMIN 2.6 g/dL (3.5-5.0); BILIRUBIN,TOTAL 0.6 mg/dL (0.2-1.0); TOTAL PROTEIN, SERUM 7.2 g/dL (6.0-8.3)
[2019-05-29] MEDS ORDERED: CLINDAMYCIN 600 MG/D5% WATER 50 ML IV ONE ×2 (12:01→19:41)
[2019-05-29] MEDS ORDERED: SODIUM CHLORIDE 0.9% 1000ML 1,000 ML IV ONE (12:02)
[2019-05-29 12:04] LABS: B-TYPE NATRIURETIC PEPTIDE 396 pg/mL (0-100)
[2019-05-29] MEDS ORDERED: ONDANSETRON HCL 4 MG/2 ML VIAL IV PRN (15:00)
[2019-05-29] MEDS ORDERED: ACETAMINOPHEN 325 MG TAB PO PRN ×2 (15:00)
[2019-05-29] MEDS: NITROGLYCERIN 1GM/1 INCH PACKET TD SCH ×2 (15:00→23:00)
[2019-05-29] MEDS ORDERED: ACETAMINOPHEN-CODEINE 300/30MG TAB PO PRN ×2 (15:00)
[2019-05-29] MEDS: CLINDAMYCIN 600 MG/D5% WATER 50 ML IV SCH ×2 (15:00→23:00)
[2019-05-29] MEDS ORDERED: LACTULOSE 20 GM/30 ML UDCUP PO PRN (15:00)
[2019-05-29] MEDS ORDERED: HYDRALAZINE HCL 20 MG/ML VIAL IV PRN (15:00)
[2019-05-29 17:14] LABS: HEMOGLOBIN A1C 5.3 % (4.0-6.0)
[2019-05-29 17:21] LABS: CREATINE KINASE, TOTAL 173 U/L (21-232); MYOGLOBIN 120 ng/mL (10-92); PHOSPHORUS 3.3 mg/dL (2.5-4.9); TROPONIN I < 0.04 ng/mL (0.00-0.06)
[2019-05-29] MEDS ORDERED: ACETAMINOPHEN-CODEINE 300/30MG TAB ONE ×2 (18:11→23:21)
[2019-05-29] MEDS ORDERED: FAMOTIDINE/PF 20 MG/2 ML VIAL IV ONE (19:41)
[2019-05-29] MEDS: FAMOTIDINE/PF 20 MG/2 ML VIAL IV SCH (21:00)
[2019-05-29] MEDS: METOPROLOL TARTRATE 25 MG TAB PO SCH (21:00)
[2019-05-29 22:48] LABS: CREATINE KINASE, TOTAL 155 U/L (21-232); MYOGLOBIN 96 ng/mL (10-92); TROPONIN I < 0.04 ng/mL (0.00-0.06)
[2019-05-30] MEDS ORDERED: LORAZEPAM 2 MG/ML 1 ML VIAL ONE (01:32)
[2019-05-30] MEDS ORDERED: CLINDAMYCIN 600 MG/D5% WATER 50 ML IV ONE ×2 (04:20→12:21)
[2019-05-30] MEDS: NITROGLYCERIN 1GM/1 INCH PACKET TD SCH ×3 (07:00→22:58)
[2019-05-30] MEDS: CLINDAMYCIN 600 MG/D5% WATER 50 ML IV SCH ×3 (07:00→22:58)
[2019-05-30 07:18] LABS: CREATINE KINASE, TOTAL 139 U/L (21-232); MYOGLOBIN 72 ng/mL (10-92); TROPONIN I < 0.04 ng/mL (0.00-0.06)
[2019-05-30] MEDS: ASPIRIN 325 MG TABLET PO SCH (09:00)
[2019-05-30] MEDS: ENOXAPARIN SODIUM 40 MG/0.4 ML SYRINGE SQ SCH (09:00)
[2019-05-30] MEDS: FAMOTIDINE/PF 20 MG/2 ML VIAL IV SCH ×2 (09:00→20:33)
[2019-05-30] MEDS ORDERED: FAMOTIDINE/PF 20 MG/2 ML VIAL IV ONE (10:09)
[2019-05-30] MEDS ORDERED: ENOXAPARIN SODIUM 40 MG/0.4 ML SYRINGE SQ ONE (10:09)
[2019-05-30] MEDS ORDERED: ACETAMINOPHEN-CODEINE 300/30MG TAB ONE (11:31)
[2019-05-30] MEDS ORDERED: METOPROLOL TARTRATE 25 MG TAB ONE (11:31)
[2019-05-30 16:48] VITALS: BP 155/74
[2019-05-30] MEDS: METOPROLOL TARTRATE 25 MG TAB PO SCH ×2 (17:30→20:33)
[2019-05-30] MEDS: DiphenhydrAMINE HCL 50 MG/ML VIAL IM PRN (18:10)
[2019-05-30] MEDS: HALOPERIDOL LACTATE 5 MG/ML VIAL IV PRN (18:10)
[2019-05-30 19:00] VITALS: BP 147/76
[2019-05-30 23:00] VITALS: BP 139/94
[2019-05-31] MEDS: DiphenhydrAMINE HCL 50 MG/ML VIAL IM PRN (01:39)
[2019-05-31] MEDS: HALOPERIDOL LACTATE 5 MG/ML VIAL IV PRN (01:40)
[2019-05-31 03:00] VITALS: BP 150/70
[2019-05-31] MEDS: CLINDAMYCIN 600 MG/D5% WATER 50 ML IV SCH ×3 (05:56→23:53)
[2019-05-31] MEDS: NITROGLYCERIN 1GM/1 INCH PACKET TD SCH ×3 (05:56→16:43)
[2019-05-31 07:20] VITALS: BP 148/72
--- NOTE | 2019-05-31 07:35 | NUR ---
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 PT DENIES PAIN ,SOB, NAUSEA. PT IS ABLE TO AMBULATE TO BEDSIDE COMMODE WITH ASSIST, GAIT SLOW AND UNSTEADY WITH RECURRENT BUCKLING OF KNEES. PT DENIES DIZZINESS BUT DOES C/O HEADACHE. PT IS ABLE TO TOLERATE FOOD, FLUIDS AND MEDICATION WITH NO THROAT CLEARING OR COUGH. CALL LIGHT WITHIN REACH, FAMILY AT BEDSIDE.
[2019-05-31 08:40] LABS: BASOPHILS % (AUTO) 0.4 % (0.0-5.0); EOSINOPHILS % (AUTO) 2.8 % (0.0-8.0); HEMATOCRIT 30.7 % (36-48); LYMPHOCYTES % (AUTO) 22.2 % (21.0-51.0); MEAN CORPUSCULAR HEMOGLOBIN 30.3 pg (27.0-33.0); MEAN CORPUSCULAR HGB CONC 33.9 g/dL (32.0-36.0); MEAN CORPUSCULAR VOLUME 89.5 fL (79-99); MONOCYTES % (AUTO) 8.2 % (3.0-13.0); NEUTROPHILS % (AUTO) 66.4 % (40.0-77.0); PLATELET COUNT (AUTO) 336 K/uL (130-400); RED BLOOD CELL COUNT(AUTO) 3.43 MIL/uL (4.00-5.50); RED CELL DISTRIBUTION WIDTH 13.6 % (11.0-15.5); WHITE BLOOD COUNT (AUTO) 7.9 K/uL (4.8-10.8)
[2019-05-31 08:50] LABS: CREATININE 1.1 mg/dL (0.5-1.5); MAGNESIUM 1.7 mg/dL (1.80-2.40); PHOSPHORUS 3.7 mg/dL (2.5-4.9)
[2019-05-31] MEDS ORDERED: POTASSIUM CHLORIDE 20MEQ/100ML 100 ML IV PRN (09:00)
[2019-05-31] MEDS ORDERED: LIDOCAINE HCL-MPF 1% 2ML VIAL IV PRN (09:00)
[2019-05-31] MEDS ORDERED: MAGNESIUM 2GM PREMIX 50ML 50 ML IV PRN (09:00)
[2019-05-31] MEDS ORDERED: POTASSIUM CHLORIDE 20 MEQ ERTAB PO PRN (09:00)
[2019-05-31] MEDS ORDERED: POTASSIUM CHLORIDE 10% ELIXIR 20 MEQ/15 ML UDCUP PO PRN (09:00)
[2019-05-31] MEDS: FAMOTIDINE/PF 20 MG/2 ML VIAL IV SCH ×2 (09:10→21:46)
[2019-05-31] MEDS: ASPIRIN 325 MG TABLET PO SCH (09:11)
[2019-05-31] MEDS: ENOXAPARIN SODIUM 40 MG/0.4 ML SYRINGE SQ SCH (09:11)
[2019-05-31] MEDS: METOPROLOL TARTRATE 25 MG TAB PO SCH ×2 (09:12→21:47)
[2019-05-31 11:20] VITALS: BP 148/71
--- NOTE | 2019-05-31 11:23 | NUR ---
cm note met with patient and grandtr, pt states resides athome with expouse and granddaughter, and provider is daughter for 30/wk. pt uses walker and cane for ambulation. no other services. discussed snf level of care with pt, and pt agreeable, call made to daughter celina and states prefers [facility]. pt in agreement. choice letter and RAE obtained. Addendum: 05/31/19 at 1125 by CLINT ESPINO CM Amended: Links added.
[2019-05-31 16:00] VITALS: BP 139/95
[2019-05-31 20:04] VITALS: BP 158/76
[2019-05-31] MEDS: INSULIN HUMULIN R 100 UNIT/ML 3ML SQ SCH (21:00)
[2019-05-31] MEDS: ATORVASTATIN CALCIUM 20 MG TABLET PO SCH (21:47)
[2019-05-31] MEDS ORDERED: SODIUM CHLORIDE 0.9% 250 ML IV ONE (23:38)
[2019-05-31 23:58] VITALS: BP 117/78
[2019-06-01] MEDS: NITROGLYCERIN 1GM/1 INCH PACKET TD SCH ×3 (00:58→17:45)
[2019-06-01 04:01] VITALS: BP 165/85
[2019-06-01 04:31] LABS: HEMATOCRIT 28.8 % (36-48); MEAN CORPUSCULAR HGB CONC 34.7 g/dL (32.0-36.0); MEAN CORPUSCULAR VOLUME 89.3 fL (79-99); PLATELET COUNT (AUTO) 322 K/uL (130-400); RED BLOOD CELL COUNT(AUTO) 3.23 MIL/uL (4.00-5.50); RED CELL DISTRIBUTION WIDTH 13.4 % (11.0-15.5)
[2019-06-01 04:49] LABS: ALBUMIN 2.3 g/dL (3.5-5.0); CREATININE 0.8 mg/dL (0.5-1.5); MAGNESIUM 1.9 mg/dL (1.80-2.40); PHOSPHORUS 3.4 mg/dL (2.5-4.9)
[2019-06-01 04:51] LABS: B-TYPE NATRIURETIC PEPTIDE 543 pg/mL (0-100)
[2019-06-01] MEDS: INSULIN HUMULIN R 100 UNIT/ML 3ML SQ SCH ×4 (05:39→21:00)
[2019-06-01] MEDS: CLINDAMYCIN 600 MG/D5% WATER 50 ML IV SCH ×2 (05:39→15:57)
[2019-06-01 07:19] VITALS: BP 166/79
[2019-06-01] MEDS: FAMOTIDINE/PF 20 MG/2 ML VIAL IV SCH ×2 (08:15→21:10)
[2019-06-01] MEDS: ASPIRIN 325 MG TABLET PO SCH (08:15)
[2019-06-01] MEDS: ENOXAPARIN SODIUM 40 MG/0.4 ML SYRINGE SQ SCH (08:16)
[2019-06-01] MEDS: LISINOPRIL 10 MG TABLET PO SCH (08:16)
[2019-06-01] MEDS: METOPROLOL TARTRATE 25 MG TAB PO SCH ×2 (08:16→21:10)
[2019-06-01 11:00] VITALS: BP 136/76
--- NOTE | 2019-06-01 15:24 | NUR ---
DC PLAN INFO SENT TO [facility]. REP NOTIFIED. LILLI DONE. PENDING APPROVAL. Addendum: 06/01/19 at 1525 by JERRY DÍAZ RN CM Amended: Links added.
[2019-06-01 15:32] VITALS: BP 154/74
[2019-06-01 19:41] VITALS: BP 158/78
--- NOTE | 2019-06-01 20:00 | NUR ---
PM NOTE PATIENT RESTING IN BED, NO S/S OF DISTRESS. PATIENT ALERT & ORIENTED X4, ON ROOM AIR. DAUGHTER AT BEDSIDE. PATIENT DENIES PAIN OR SHORTNESS OF BREATH AT THIS TIME. ON TELEMETRY PATIENT IS SINUS RHYTHM AT 77. CALL LIGHT WITHIN REACH. INSTRUCTED TO CALL FOR ASSISTANCE. VERBALIZED UNDERSTANDING. Addendum: 06/02/19 at 0059 by LAMBERTO STEEN RN PATIENT ALERT & ORIENTED X2.
[2019-06-01] MEDS ORDERED: TEMAZEPAM 15 MG CAPSULE PO SCH (21:00)
[2019-06-01] MEDS: ATORVASTATIN CALCIUM 20 MG TABLET PO SCH (21:10)
[2019-06-01 23:00] VITALS: BP 148/72
[2019-06-02] MEDS: CLINDAMYCIN 600 MG/D5% WATER 50 ML IV SCH ×3 (01:10→14:55)
[2019-06-02] MEDS: NITROGLYCERIN 1GM/1 INCH PACKET TD SCH ×3 (01:14→16:28)
[2019-06-02 04:00] VITALS: BP 158/80
[2019-06-02] MEDS: INSULIN HUMULIN R 100 UNIT/ML 3ML SQ SCH ×3 (07:00→16:28)
[2019-06-02 07:11] VITALS: BP 154/76
[2019-06-02] MEDS ORDERED: MEMANTINE HCL 5 MG TABLET PO SCH (09:00)
[2019-06-02] MEDS ORDERED: CITALOPRAM 20 MG TABLET PO SCH (09:00)
[2019-06-02] MEDS ORDERED: ALLO100T PO (10:27)
[2019-06-02] MEDS: ENOXAPARIN SODIUM 40 MG/0.4 ML SYRINGE SQ SCH (10:29)
[2019-06-02] MEDS: FAMOTIDINE/PF 20 MG/2 ML VIAL IV SCH (10:30)
[2019-06-02] MEDS: ASPIRIN 325 MG TABLET PO SCH (10:30)
[2019-06-02] MEDS: LISINOPRIL 10 MG TABLET PO SCH (10:30)
[2019-06-02] MEDS: METOPROLOL TARTRATE 25 MG TAB PO SCH (10:30)
[2019-06-02 11:40] VITALS: BP 104/63
--- NOTE | 2019-06-02 13:41 | NUR ---
SHILO PLAN PATIENT ACCEPTED TO [facility] 0900 THIS MORNING. LET NURSE AND KNOW. WILL GO VIA FACILITY [facility]. Addendum: 06/02/19 at 1342 by JERRY DÍAZ RN CM Amended: Links added.
[2019-06-02 15:13] VITALS: BP 132/68
[2019-06-02] MEDS ORDERED: ASPI81TA40 PO (16:22)
[2019-06-02] MEDS ORDERED: ACET-2247 PO (16:22)
[2019-06-02] MEDS ORDERED: MEMA5TAB PO (16:22)
[2019-06-02] MEDS ORDERED: TEMA15CA PO (16:22)
[2019-06-02] MEDS ORDERED: LISI10TA7 PO (16:22)
[2019-06-02] MEDS ORDERED: ATOR20TA65 PO (16:22)
[2019-06-02] MEDS ORDERED: METO25 PO (16:22)
[2019-06-02] MEDS ORDERED: CITA-106 PO (16:22)
== END 2019-06-02 19:05 | DRG 603 ==
LOC: EDH 11:05 → EDHIP 14:55 → 2DH 05-30 16:16
PROVIDERS: ADMIT Internal Medicine; ATTEND Internal Medicine
DX: L03.114 Cellulitis of left upper limb (principal); R07.89 Other chest pain; M70.32 Other bursitis of elbow, left elbow; F03.90 Unspecified dementia, unspecified severity, without behavioral disturbance, psychotic disturbance, mood disturbance, and anxiety; F41.1 Generalized anxiety disorder; E11.9 Type 2 diabetes mellitus without complications; E78.2 Mixed hyperlipidemia; I10 Essential (primary) hypertension; I25.10 Atherosclerotic heart disease of native coronary artery without angina pectoris; Z88.8 Allergy status to other drugs, medicaments and biological substances; I25.2 Old myocardial infarction; Z95.1 Presence of aortocoronary bypass graft; Z83.3 Family history of diabetes mellitus; Z82.5 Family history of asthma and other chronic lower respiratory diseases; Z82.3 Family history of stroke; Z82.0 Family history of epilepsy and other diseases of the nervous system; Z82.49 Family history of ischemic heart disease and other diseases of the circulatory system
CPT/HCPCS: 36415; 71045; 80048; 80053; 82040; 82550; 82948; 83036; 83605; 83735; 83874; 83880; 84100; 84145; 84484; 85025; 85027; 85610; 85730; 87040; 93005; 97039; G0378; J1200; J1630; J1650; J2060; J3490; J7030

== ENCOUNTER → 2019-09-14 | Outpatient (CLI) | payer MEDICARE ==
[~2019-09-14] MED LIST changes: +ACET-2247 PO; +AMLO5TAB5 PO; -AMLO5TAB9 PO; +ATOR20TA65 PO; +CITA-106 PO; +DONE5TAB33 PO; +MELO-106 PO; +MEMA5TAB PO; +MIRT15TA6 PO; +RANI150T7 PO; +TEMA15CA PO
== END | disposition home or self-care (01) ==
LOC: SHCH 08:23
PROVIDERS: ATTEND Internal Medicine Cardiovascular Disease
DX: R60.9 Edema, unspecified (principal)
CPT/HCPCS: 93970

== ENCOUNTER 2019-12-15 05:43 | Day surgery (SDC) | payer MEDICARE ==
[2019-12-15] VITALS (10 sets, daily range): BP systolic 104–154; BP diastolic 52–73
[~2019-12-15] VITALS: Ht 157.5 cm; Wt 67.2 kg
[~2019-12-15 05:43] MED LIST changes: -ACET-2247 PO; +ALLO100T PO; -CITA-106 PO; +CITA10TA7 PO; -CLIN300C9 PO; -DOCU-282 PO; -ISOS30TA6 PO; -MELO-106 PO; +MEMA10TA55 PO; -MEMA5TAB PO; -RANI150T7 PO; -SUCR1TAB2 PO; -TEMA15CA PO
--- NOTE | 2019-12-15 06:00 | NUR ---
PREOP PT ARRIVED VIA W/C WITH DAUGHTER AT SIDE. PT IN NO DISTRESS AT THIS TIME. PT HERE FOR [facility]. PT ORIENTED TO ROOM, CALL LIGHT WITHIN REACH AND CONNECTED TO BINGO CLERK
--- NOTE | 2019-12-15 06:02 | NUR ---
assessment addendum pt has redness and swelling to rt knee due to gout and bruising to arms noted.
[2019-12-15] MEDS ORDERED: SODIUM CHLORIDE 0.9% 1000ML 1,000 ML IV ONE (06:06)
[2019-12-15 06:17] LABS: BASOPHILS % (AUTO) 0.2 % (0.0-5.0); EOSINOPHILS % (AUTO) 10.9 % (0.0-8.0); HEMATOCRIT 35.5 % (36-48); LYMPHOCYTES % (AUTO) 31.7 % (21.0-51.0); MEAN CORPUSCULAR HEMOGLOBIN 30.5 pg (27.0-33.0); MEAN CORPUSCULAR VOLUME 98.3 fL (79-99); MONOCYTES % (AUTO) 7.7 % (3.0-13.0); NEUTROPHILS % (AUTO) 48.9 % (40.0-77.0); PLATELET COUNT (AUTO) 150 K/uL (130-400); RED BLOOD CELL COUNT(AUTO) 3.61 MIL/uL (4.00-5.50); RED CELL DISTRIBUTION WIDTH 15.3 % (11.0-15.5); WHITE BLOOD COUNT (AUTO) 8.3 K/uL (4.8-10.8)
[2019-12-15 06:27] LABS: CREATININE 1.4 mg/dL (0.5-1.5); POTASSIUM 4.6 mmol/L (3.5-5.1)
[2019-12-15 06:35] LABS: APPEARANCE,URINE Clear (CLEAR); BILIRUBIN,URINE Negative (NEGATIVE); COLOR,URINE Yellow (YELLOW); GLUCOSE, URINE (UA) Negative (NEGATIVE); KETONES,URINE Negative (NEGATIVE); LEUKOCYTE ESTERASE ,URINE Moderate (NEGATIVE); NITRATE,URINE Negative (NEGATIVE); OCCULT BLOOD,URINE Negative (NEGATIVE); PROTEIN,URINE Negative (NEGATIVE); UROBILINOGEN,URINE 0.2 mg/dL (0.2-1.0)
[2019-12-15 06:45] LABS: INR 0.92 (0.85-1.15)
--- NOTE | 2019-12-15 06:57 | NUR ---
SKIN PREP PT SHAVED BY JERSEY CARRILLO
[2019-12-15] MEDS ORDERED: NITROGLYCERIN 2 MG/VIAL VIAL IV ONE (07:21)
[2019-12-15] MEDS ORDERED: HEPARIN SODIUM 1000UNIT/ML 10ML VIAL ONE (07:21)
[2019-12-15] MEDS ORDERED: IOHEXOL 350 MG/ML 100ML INFUS..BTL IV ONE (07:21)
[2019-12-15] MEDS ORDERED: SODIUM BICARB 50MEQ 50ML VIAL ONE (07:21)
[2019-12-15] MEDS ORDERED: IOHEXOL-350 50ML VIAL IV ONE (07:21)
[2019-12-15] MEDS ORDERED: MEPERIDINE-PF 25 MG/ML SYG ONE (07:22)
[2019-12-15] MEDS ORDERED: MIDAZOLAM HCL 1 MG/ML 2ML VIAL ONE (07:22)
[2019-12-15] MEDS ORDERED: LIDOCAINE HCL 2% 20ML ONE (07:22)
--- NOTE | 2019-12-15 07:25 | NUR ---
report moris wei informed dr nelson will increase fluids to 150mls per hour for hydration due to creatinine of 1.4
--- NOTE | 2019-12-15 07:32 | NUR ---
construction or leak gang laborer pt taken to construction or leak gang laborer via bed by moris wei
[2019-12-15 07:36] LABS: BACTERIA,URINE Few /HPF (None Seen); RBC,URINE 0-1 /HPF (0-1); SQUAMOUS EPITHELIAL CELL,UR Few /HPF (0-2)
[2019-12-15] MEDS ORDERED: SODIUM CHLORIDE 0.9% 1000ML 1,000 ML IV SCH (08:45)
--- NOTE | 2019-12-15 11:10 | NUR ---
report report given to casimiro vines rn for continuation of care
--- NOTE | 2019-12-15 11:15 | NUR ---
received report from Ida Pizarro RN
== END 2019-12-15 13:20 | disposition home or self-care (01) ==
LOC: DAH 05:43 → CLH 05:43
PROVIDERS: ATTEND Internal Medicine Cardiovascular Disease
DX: I25.119 Atherosclerotic heart disease of native coronary artery with unspecified angina pectoris (principal); I25.82 Chronic total occlusion of coronary artery; I11.0 Hypertensive heart disease with heart failure; I50.32 Chronic diastolic (congestive) heart failure; E11.9 Type 2 diabetes mellitus without complications; E78.5 Hyperlipidemia, unspecified; K21.9 Gastro-esophageal reflux disease without esophagitis; Z95.1 Presence of aortocoronary bypass graft; Z95.5 Presence of coronary angioplasty implant and graft; Z79.899 Other long term (current) drug therapy; Z79.02 Long term (current) use of antithrombotics/antiplatelets; Z79.82 Long term (current) use of aspirin; Z88.8 Allergy status to other drugs, medicaments and biological substances; Z79.01 Long term (current) use of anticoagulants
CPT/HCPCS: 36415; 71045; 80048; 81001; 85025; 85610; 85730; 87088; 93005; 93459; A4216; A4221; A4222; A4223 ×3; A4606; A4663; C1760; C1894; J1644; J2250; J3490 ×3; J7030 ×2; Q9965; Q9967 ×2; 99156; 99157; J2175